=== PATIENT | female | born 1990 | race Caucasian/White ===

== ENCOUNTER 2017-09-05 11:25 | Emergency (ER) | payer OTHER ==
[2017-09-05 11:59] VITALS: BP 108/40; PULSE 88; RESP 16; TEMP 98.3; O2SAT 100
[2017-09-05] MEDS ORDERED: LIDOCAINE HCL 2% (VISCOUS) 20 ML SOL MT ONE (12:08)
[2017-09-05] MEDS ORDERED: LIDOCAINE HCL 2% (VISCOUS) 20 ML SOL ONE (12:09)
== END 2017-09-05 12:30 | disposition home or self-care (01) ==
LOC: ED 11:25
DX: S31.41XD Laceration without foreign body of vagina and vulva, subsequent encounter (principal)
CPT/HCPCS: 99282; A6402